=== PATIENT | male | born 1955 | race Two or more races ===

== ENCOUNTER 2020-04-22 06:50 | Outpatient (NON) | payer OTHER, SELFPAY ==
[2020-04-22 18:24] LABS: SARS-CoV-2 RNA PCR Negative
== END 2020-04-22 06:51 ==
LOC: ANHCOVIDDT 07:10
PROVIDERS: Visit Provider Internal Medicine
DX: R68.89 Other general symptoms and signs (principal); Z20.828 Contact with and (suspected) exposure to other viral communicable diseases
CPT/HCPCS: 87635; C9803; U0003

== ENCOUNTER 2020-04-27 10:00 | Outpatient (RCR) | payer OTHER, SELFPAY ==
--- NOTE | 2020-04-06 11:38 | PTOPEVAL ---
PHYSICAL THERAPY EVALUATION AND PLAN OF CARE Thank you for referring Diego Live to [facility].? The patient is scheduled to be seen for therapy? 1x/week for 3-6 weeks. We will reassess patient's condition at 3 weeks and determine if further skilled therapy is needed. Please review, sign, date and return this plan of care ASHLEY. I agree with and certify that the following plan of care is medically necessary. Referring Physician Date Attending Provider: Vladislav Moyer MD Evaluation Outpatient Past Medical History Cardiovascular History Hx Hypercholesterolemia Yes: controlled Hx Hypertension Yes: controlled Hx Myocardial Infarction Yes: mild [id number] ago Musculoskeletal History Hx Joint Replacement Yes: right WALKER Endocrine History Hx Diabetes Yes: controlled Evaluation Information Problem Diagnosis cervicalalgia Onset February 2020 Cause insidious Subjective Information Diego is here today with c/o Query Text:As Reported By Patient/ upper left sided neck pain. Family Pain with rotation, extension, flexion. 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 He does not sleep well with the pain. Takes Tramadol for pain. The pain is persisting too long for comfort. Self Report Pain Assessment Spine, Cervical Reported Pain Level 3 Pain Description Sharp,Spasms Lowest Pain Intensity 1 Greatest Pain Intensity 7 Pain Aggravating Factors Bending,Lifting Other Pain Aggravating Factors rotation Pain Behaviors None Cervical ROM Cervical Flexion (0-60) 55 Query Text:Active in Degrees Cervical Extension (0-70) 20 Query Text:Active in Degrees Cervical Rotation Right (0-90) 50 Query Text:Active in Degrees Cervical Rotation Left (0-90) 60 Query Text:Active in Degrees Cervical ROM Comments symptoms on left upper cervical spine with rotation and extension Scapular/ Shoulder Range of Motion Bilateral Reason Not Measured WFL/Left,WFL/Right Scapular/Shoulder Range of Motion no pain with shoulder ROM, Comments mild decrease in elevation Upper Extremity Muscle Strength Testing Scapular/Shoulder Bilateral Scapular Retraction - Middle Trapezius 3+ Fair + Scapular Retraction - Lower Trapezius 3- Fair - Shoulder Flexion Strength 5 Normal Should
--- NOTE | 2020-04-27 12:01 | PTOPEVAL ---
PHYSICAL THERAPY DISCHARGE NOTE Thank you for referring Diego Live to [facility].? Please review, sign, date and return this plan of care ASHLEY. I agree with and certify that the following plan of care is medically necessary. Referring physician: Attending Provider: Vladislav Moyer MD Discharge Diagnosis cervicalalgia Onset February 2020 Cause insidious Subjective Information Diego is here today with c/o Query Text:As Reported By Patient/ upper left sided neck pain. Family Reports that all pain is improving with some pain/ soreness at the end of the day . Sleeping is much improved. States that his weekend was very busy and he did well while at work, was just sore in the evening. Self Report Pain Assessment Spine, Cervical Reported Pain Level 1 Pain Description Sharp,Spasms Pain Aggravating Factors Bending,Lifting Other Pain Aggravating Factors rotation Pain Behaviors None Pain Score Pain Score 1: Self Report Interventions Used Interventions Used By Clinicians Exercise,Manual Therapy Techniques Pain Relief Interventions Used By Exercise Patient Cervical and Lumbar ROM Cervical ROM Cervical Flexion (0-60) 55 Query Text:Active in Degrees Cervical Extension (0-70) 55 Query Text:Active in Degrees Cervical Rotation Right (0-90) 65 Query Text:Active in Degrees Cervical Rotation Left (0-90) 70 Query Text:Active in Degrees Cervical ROM Comments symptoms on left upper cervical spine with rotation Upper Extremity Range of Motion Scapular/ Shoulder Range of Motion Bilateral Reason Not Measured WFL/Left,WFL/Right Upper Extremity Muscle Strength Testing Scapular/Shoulder Bilateral Scapular Retraction - Middle Trapezius 4 Good Scapular Retraction - Lower Trapezius 3 Fair Shoulder Flexion Strength 5 Normal Shoulder Abduction Strength 5 Normal Shoulder Medial Rotation Strength 5 Normal Shoulder Lateral Rotation Strength 5 Normal Muscle Length Testing Muscle Length Testing Scalenes Anterior Muscle Length (R) WFL,(L) Mild Tightness Query Text: Sternocleidomastoid Muscle Length (R) WFL,(L) Mild Tightness Palpation significantly improved tissue quality, mild trigger point in left upper trapezius PT Clinical Summary Dieog is a 64 yo male presenting to outpatient ph
== END 2020-04-28 11:11 | disposition home or self-care (01) ==
LOC: ANHPT 10:00
PROVIDERS: PCP Internal Medicine; Visit Provider Internal Medicine
DX: M54.2 Cervicalgia (principal)
CPT/HCPCS: 97110; 97140; 97161

== ENCOUNTER 2020-06-15 10:39 | Outpatient (CLI) | payer OTHER, SELFPAY ==
--- NOTE | ~2020-06-15 | XR_ITS ---
EXAMINATION: XR ankle LT 2V, XR foot LT 2V EXAM DATE: 06/15/2020 10:53 INDICATION: Pain in left foot, heel, ankle. TECHNIQUE: Frontal and lateral projections of the left ankle, foot. There are no prior studies for c omparison. FINDINGS: The ankle mortise appears intact. There are no acute left foot, ankle fractures or disloca tions identified. There is no subcutaneous gas. The soft tissue is unremarkable. There are no rad iopaque foreign bodies. There is mild 1st metatarsophalangeal joint primary osteoarthritis. 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 Reviewed, dictated and finalized at location B. 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
--- NOTE | ~2020-06-15 | XR_ITS ---
EXAMINATION: XR heel LT min 2V DATE: 06/15/2020 10:53 INDICATION: Left heel pain. TECHNIQUE: 2 views of left calcaneus were obtained. COMPARISON: None. FINDINGS: Bone alignment is normal. No fracture. Joint spaces are well maintained. There is an enthes ophyte at posterior aspect of calcaneal tuberosity. IMPRESSION: 1. No fracture. Reviewed, dictated and finalized at location A. D RECORDER IMPRESSION: 1. No fracture.
[2020-06-15 12:07] LABS: Basophils Percent Auto 0.5 % (0.2-1.2); Eosinophils Absolute Auto 0.2 K/mm3 (0-0.3); Eosinophils Percent Auto 3.9 % (0-4.4); Hematocrit 46.2 % (42.0-52.0); Hemoglobin 15.7 g/dL (14.0-18.0); Immature Granulocyte Absolute 0.05 K/mm3 (0.00-0.031); Immature Granulocyte Percent A 0.9 % (0-0.5); Immature Platelet Fraction Pct 8.5 % (0.9-11.2); Lymphocytes Absolute Auto 0.97 K/mm3 (0.9-3.2); Lymphocytes Percent Auto 17.3 % (18.3-44.2); Mean Corpuscular Hemoglobin 31.4 pg (26-34); Mean Corpuscular Volume 92.4 fl (80-100); Mean Platelet Volume 11.5 fl (7.4-10.4); Monocytes Absolute Auto 0.3 K/mm3 (0.1-0.6); Monocytes Percent Auto 5.9 % (2.6-8.5); Neutrophils Percent Auto 71.5 % (45.5-73.1); Platelet Count Result 132 k/mm3 (150-375); Red Cell Distribution Width 13.7 % (11.5-14.5); White Blood Count 5.6 K/mm3 (4.5-10.0)
[2020-06-15 12:14] LABS: Alanine Aminotransferase 70 U/L (4-50); Alkaline Phosphatase 110 U/L (38-126); Anion Gap 5 mmol/L (8-16); Aspartate Amino Transferase 48 U/L (17-59); Bilirubin,Total 0.7 mg/dL (0.2-1.3); Blood Urea Nitrogen 10 mg/dL (9-20); Calcium 8.8 mg/dL (8.4-10.2); Carbon Dioxide 34 mmol/L (22-30); Chloride 102 mmol/L (98-107); Cholesterol 118 mg/dL (0-200); Estimated Glomerular Filt Rate > 60; Glucose 138 mg/dL (75-110); HDL Direct 38 mg/dL; Potassium 4.1 mmol/L (3.4-5.0); Sodium 141 mmol/L (137-145); Triglycerides 147 mg/dL (<150)
[2020-06-15 12:25] LABS: LDL Cholesterol Direct 58 mg/dL
[2020-06-15 13:02] LABS: Hemoglobin A1C 6.7 % (<5.7)
[2020-06-18 11:43] LABS: GGT 43 U/L (3-70)
== END 2020-06-15 10:40 | disposition home or self-care (01) ==
PROVIDERS: PCP Internal Medicine; Visit Provider Internal Medicine
DX: M79.672 Pain in left foot (principal); E78.2 Mixed hyperlipidemia; Z51.81 Encounter for therapeutic drug level monitoring; Z79.899 Other long term (current) drug therapy; E11.9 Type 2 diabetes mellitus without complications; I10 Essential (primary) hypertension; M19.072 Primary osteoarthritis, left ankle and foot
CPT/HCPCS: 36415; 73600; 73620; 73650; 80048; 80061; 80076; 82977; 83036; 85025; 85055

== ENCOUNTER 2020-06-22 12:41 | Outpatient (CLI) | payer OTHER, SELFPAY ==
--- NOTE | ~2020-06-22 | XR_ITS ---
EXAMINATION: XR hip BI 2V w AP pelvis EXAM DATE: 06/22/2020 12:59 INDICATION: M25.559 - Pain in unspecified hip . TECHNIQUE: Each hip imaged independently (separate right and also left hip) 'frog leg' and frontal p rojections for interpretation. Frontal projection pelvis. Comparison is made to prior examination fr om 11/06/2014. FINDINGS: Total right hip arthroplasty. There is moderate left hip primary osteoarthritis. There is m ild bilateral sacroiliac primary osteoarthritis. There are no acute fractures or dislocations identi fied. There is no subcutaneous gas. The soft tissue is unremarkable. There are no radiopaque fore ign bodies. Macro arthritis. IMPRESSION: Moderate left hip osteoarthritis. Reviewed, dictated and finalized at location A. 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
[2020-06-22 13:32] LABS: CRP 0.7 mg/dL (<1.0)
[2020-06-22 13:44] LABS: Erythrocyte Sedimentation Rate 15 mm/hr (0-20)
== END 2020-06-22 12:42 | disposition home or self-care (01) ==
PROVIDERS: PCP Internal Medicine; Visit Provider Internal Medicine
DX: M16.12 Unilateral primary osteoarthritis, left hip (principal)
CPT/HCPCS: 36415; 73521; 85652; 86140

== ENCOUNTER 2020-07-14 11:00 | Outpatient (RCR) | payer OTHER, SELFPAY ==
--- NOTE | 2020-07-01 09:31 | PTOPEVAL ---
PHYSICAL THERAPY EVALUATION AND PLAN OF CARE Thank you for referring Diego Live to [facility].? The patient is scheduled to be seen for therapy? 1x/week for 3 weeks. Please review, sign, date and return this plan of care ASHLEY. I agree with and certify that the following plan of care is medically necessary. Referring Physician Date Attending Provider: Vladislav Moyer MD Evaluation Diagnosis left hip pain; OA Onset 6months Subjective Information Diego is here today with c/o Query Text:As Reported By Patient/ left hip pain. X-ray indicates Family moderate arthritis. 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 States that activities for extended periods of time are more difficult and painful in the left hip. Self Report Pain Assessment Left Hip(s) Reported Pain Level 2 Pain Description Aching,Sharp Pain Frequency Chronic,Intermittent Lowest Pain Intensity 0 Greatest Pain Intensity 6 Pain Aggravating Factors Walking,Weight Bearing/ Standing Pain Behaviors None Pain Score Pain Score 2: Self Report Interventions Used Interventions Used By Clinicians Exercise Pain Relief Interventions Used By Inactivity/Rest,Position Patient Change Lower Extremity Range of Motion Hip Range of Motion Left Hip Flexion Range of Motion - Passive 95 Hip Medial Rotation - Passive 14 Lower Extremity Muscle Strength Testing Hip Strength Left Hip Flexion Strength 4+ Good + Hip Extension Strength 3 Fair Hip Abduction Strength 4 Good Hip Strength Comments squat: performs at least 35% depth with good technique Knee Strength Bilateral Knee Flexion Strength 5 Normal Knee Extension Strength 5 Normal Ankle Strength Bilateral Ankle Strength Comments 16/20 unilateral heel raises on each side; stopped due to poor quality Muscle Length Testing Muscle Length Testing Piriformis w/Hip Flexion >90 Degrees (R) Mild Tightness,(L) Moderate Tightness Left Hamstring Length -50 Query Text:(90 - 90 Position) Right Hamstring Length -50 Query Text:(90 - 90 Position) Gait Assessment Gait Pattern Assessment Gait Pattern Wide Based Gait PT Clinical Summary Diego is a 64 yo male presenting to outpatient
--- NOTE | 2020-07-22 09:26 | PCPTNOTE ---
Patient did not show up for scheduled appointment this date.Called and left message regarding no show for his appt. Will plan to DC if pt does not call by Monday to reschedule.
--- NOTE | 2020-07-29 09:53 | PCPTNOTE ---
Admitting Provider: Attending Provider: Vladislav Moyer MD Patient:Diego Live Date of :1955 Discharge Note Patient has not returned for any further treatments since 07/14/2020, therefore he will be discharged at this time. Patient?s initial visit was on 07/01/2020 08:30 and he had a total of 3 visits with 1 no show.. The goals have been not met at this time. Thank you for referring this patient to [facility]. Please review, sign, date and return this discharge summary ASHLEY. I have been updated about the patient's current status and I agree with discharge from the above service at this time. Referring Physician Date
== END 2020-07-29 12:40 | disposition home or self-care (01) ==
LOC: ANHPT 11:00
PROVIDERS: Family Provider Internal Medicine; PCP Internal Medicine; Visit Provider Internal Medicine
DX: M16.12 Unilateral primary osteoarthritis, left hip (principal); M25.552 Pain in left hip
CPT/HCPCS: 97110; 97140; 97162

== ENCOUNTER 2020-10-26 10:58 | Outpatient (CLI) | payer OTHER, SELFPAY ==
[2020-10-26 11:36] LABS: Basophils Percent Auto 0.4 % (0.2-1.2); Eosinophils Absolute Auto 0.2 K/mm3 (0-0.3); Eosinophils Percent Auto 3.5 % (0-4.4); Hematocrit 42.3 % (42.0-52.0); Immature Granulocyte Absolute 0.03 K/mm3 (0.00-0.031); Immature Granulocyte Percent A 0.6 % (0-0.5); Lymphocytes Absolute Auto 0.89 K/mm3 (0.9-3.2); Lymphocytes Percent Auto 18.1 % (18.3-44.2); Mean Corpuscular HGB Conc 33.1 g/dl (32-36); Mean Corpuscular Hemoglobin 30.3 pg (26-34); Mean Corpuscular Volume 91.6 fl (80-100); Mean Platelet Volume 12.1 fl (7.4-10.4); Monocytes Absolute Auto 0.4 K/mm3 (0.1-0.6); Monocytes Percent Auto 7.1 % (2.6-8.5); Neutrophils Absolute Auto 3.5 K/mm3 (1.3-6.7); Neutrophils Percent Auto 70.3 % (45.5-73.1); Platelet Count Result 119 k/mm3 (150-375); Red Blood Count 4.62 M/mm3 (4.6-6.20); White Blood Count 4.9 K/mm3 (4.5-10.0)
[2020-10-26 11:46] LABS: Alanine Aminotransferase 34 U/L (4-50); Albumin Level 3.8 g/dL (3.5-5.1); Alkaline Phosphatase 104 U/L (38-126); Anion Gap 1 mmol/L (8-16); Aspartate Amino Transferase 33 U/L (17-59); Bilirubin,Total 0.4 mg/dL (0.2-1.3); Blood Urea Nitrogen 12 mg/dL (9-20); Calcium 8.6 mg/dL (8.4-10.2); Carbon Dioxide 31 mmol/L (22-30); Chloride 107 mmol/L (98-107); Cholesterol 109 mg/dL (0-200); Estimated Glomerular Filt Rate > 60; Glucose 129 mg/dL (75-110); HDL Direct 43 mg/dL; Sodium 139 mmol/L (137-145); Triglycerides 98 mg/dL (<150)
[2020-10-26 11:56] LABS: LDL Cholesterol Direct 50 mg/dL
[2020-10-26 12:35] LABS: Hemoglobin A1C 6.6 % (<5.7)
== END 2020-10-26 10:59 | disposition home or self-care (01) ==
LOC: ANHLAB 11:02
PROVIDERS: PCP Internal Medicine; Visit Provider Internal Medicine
DX: E78.2 Mixed hyperlipidemia (principal); I10 Essential (primary) hypertension; E11.9 Type 2 diabetes mellitus without complications
CPT/HCPCS: 36415; 80053; 80061; 83036; 85025

== ENCOUNTER 2021-03-08 14:18 | Outpatient (CLI) | payer OTHER, SELFPAY ==
[2021-03-08 15:16] LABS: Hemoglobin A1C 6.6 % (<5.7)
[2021-03-08 16:18] LABS: Free T4 Free Thyroxine 1.02 ng/mL (0.78-2.19)
[2021-03-08 19:01] LABS: Alanine Aminotransferase 45 U/L (4-50); Albumin Level 4.4 g/dL (3.5-5.1); Alkaline Phosphatase 111 U/L (38-126); Anion Gap 6 mmol/L (8-16); Aspartate Amino Transferase 36 U/L (17-59); Bilirubin,Total 0.5 mg/dL (0.2-1.3); Blood Urea Nitrogen 14 mg/dL (9-20); Calcium 9.5 mg/dL (8.4-10.2); Carbon Dioxide 32 mmol/L (22-30); Chloride 104 mmol/L (98-107); Cholesterol 119 mg/dL (0-200); Estimated Glomerular Filt Rate > 60; Glucose 105 mg/dL (65-110); HDL Direct 45 mg/dL; Potassium 4.5 mmol/L (3.4-5.0); Sodium 142 mmol/L (137-145); Triglycerides 87 mg/dL (<150)
[2021-03-08 19:12] LABS: LDL Cholesterol Direct 59 mg/dL
[2021-03-08 19:31] LABS: Prostate Specific Antigen 1.6 ng/mL (< OR = 4.0); Thyroid Stimulating Hormone 0.516 uIU/mL (0.465-4.680)
== END 2021-03-08 14:19 | disposition home or self-care (01) ==
LOC: ANHLAB 14:23
PROVIDERS: PCP Internal Medicine; Visit Provider Internal Medicine
DX: I10 Essential (primary) hypertension (principal); E11.9 Type 2 diabetes mellitus without complications; E78.2 Mixed hyperlipidemia; Z12.5 Encounter for screening for malignant neoplasm of prostate; Z79.899 Other long term (current) drug therapy
CPT/HCPCS: 36415; 80053; 80061; 83036; 84153; 84439; 84443; G0103

== ENCOUNTER 2021-05-03 15:43 | Outpatient (CLI) | payer OTHER, SELFPAY ==
--- NOTE | ~2021-05-03 | US_ITS ---
EXAMINATION: US venous doppler [facility] EXAM DATE: 05/03/2021 16:34 INDICATION: M79.605 - Pain and swelling in left leg . TECHNIQUE: Multiple grayscale, color flow and Doppler images of the left lower extremity deep venous system were obtained and reviewed. There is no prior study for comparison. FINDINGS: The left common femoral, femoral and profunda veins demonstrate normal color flow, respirat ory variation, augmentation and compressibility. Compressibility, color flow confirmed within the le ft popliteal, posterior tibial, peroneal, and greater saphenous veins. IMPRESSION: No left lower extremity deep venous thrombosis. Reviewed, dictated and finalized at location A. TAKER RESORT
== END 2021-05-03 15:44 | disposition home or self-care (01) ==
LOC: ANHIMG 15:49
PROVIDERS: PCP Internal Medicine; Visit Provider Internal Medicine
DX: M79.605 Pain in left leg (principal); M79.89 Other specified soft tissue disorders
CPT/HCPCS: 93971

== ENCOUNTER 2021-08-10 10:54 | Outpatient (CLI) | payer OTHER, SELFPAY ==
[2021-08-10 11:40] LABS: Add Urine Microscopic? YES; Appearance Urine Cloudy (Clear); Bilirubin Urine Negative (Negative); Blood Urine Negative (Negative); Color Urine Yellow (Yellow); Glucose Urine UA Negative (Negative); Ketones Urine Negative (Negative); Leukocyte Esterase Ur Negative LEU/UL (Negative); Mucus Urine Few /lpf; Nitrate Urine Negative (Negative); Protein Urine Negative (Negative); RBC Urine 0-2 /hpf (0-2); Specific Grav Ur 1.023 (1.001-1.035); Squamous Epithelial Cell Urine Rare /hpf (Few); Urobilinogen Urine Negative mg/dL (<2.0); WBC Urine 0-3 /hpf
[2021-08-10 11:44] LABS: Alanine Aminotransferase 26 U/L (4-50); Alkaline Phosphatase 105 U/L (38-126); Anion Gap 5 mmol/L (8-16); Aspartate Amino Transferase 25 U/L (17-59); Bilirubin,Total 0.6 mg/dL (0.2-1.3); Blood Urea Nitrogen 14 mg/dL (9-20); Calcium 8.5 mg/dL (8.4-10.2); Carbon Dioxide 30 mmol/L (22-30); Chloride 103 mmol/L (98-107); Cholesterol 145 mg/dL (0-200); Estimated Glomerular Filt Rate > 60; Glucose 189 mg/dL (65-110); HDL Direct 49 mg/dL; Potassium 3.6 mmol/L (3.4-5.0); Sodium 138 mmol/L (137-145); Triglycerides 99 mg/dL (<150)
[2021-08-10 11:55] LABS: LDL Cholesterol Direct 68 mg/dL
[2021-08-10 12:07] LABS: Creatinine Urine 280.1 mg/dL
[2021-08-10 12:09] LABS: Vitamin D 25 Hydroxy 51.3 ng/mL
[2021-08-10 12:11] LABS: MALB Creatinine Ratio 32.3 mg/g (0-30); Microalbumin Urine Random 90.5 mg/L (0-16.7)
== END 2021-08-10 10:55 | disposition home or self-care (01) ==
PROVIDERS: PCP Internal Medicine; Visit Provider Internal Medicine
DX: E55.9 Vitamin D deficiency, unspecified (principal); E78.2 Mixed hyperlipidemia; Z51.81 Encounter for therapeutic drug level monitoring; Z79.899 Other long term (current) drug therapy; E11.9 Type 2 diabetes mellitus without complications; I10 Essential (primary) hypertension
CPT/HCPCS: 36415; 80053; 80061; 81001; 82043; 82306

== ENCOUNTER 2021-08-23 14:45 | Outpatient (RCR) | payer OTHER, SELFPAY ==
--- NOTE | 2021-08-17 09:05 | PTOPEVAL ---
PHYSICAL THERAPY INITIAL EVALUATION. Thank you for referring Diego Live to [facility].? The patient is scheduled to be seen for therapy? 2x/week for 4 weeks. Please review, sign, date and return this plan of care ASHLEY. I agree with and certify that the following plan of care is medically necessary. Referring Physician Date Attending Provider: ANDREW Schwartz *PT Outpatient Evaluation Start: 08/17/21 Evaluation Information Diagnosis L knee pain osteoarthritis Onset ~2 years Subjective Information Pt states he is having knee Query Text:As Reported By Patient/ pain. 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 He has had a couple of injections without much relief. His last one was in Jun. Pt states he has increased pain during his prayer sessions, these last about 5 mins. Pt states he has a knee brace but reports he thinks he wears it too long as it causes his knee to swell. Pain Assessment Left Knee(s) Reported Pain Level 0 Pain Description Pinching,Sharp Lowest Pain Intensity 0 Greatest Pain Intensity 5 Pain Aggravating Factors Exercise/Activity,Walking, Weight Bearing/Standing Lower Extremity Range of Motion Left Knee Flexion Range of Motion - Active 124 Knee Flexion Range of Motion - Passive 133 Knee Extension Range of Motion - Active 0 Knee Extension Range of Motion - Passive 0 Knee Range of Motion Comments R knee active - 0-133 R knee passive 0-140 Lower Extremity Muscle Strength Testing Gross Lower Extremity Strength B LE grossly 4+/5 L knee flexion/ext 4/5 B hip abduction 4-/5 Functional strength: able to perform 7 mini squats to chair without UE support Muscle Length Testing Ivan Test Shortened Muscles Short (R) Iliopsoas,Short (R) Rectus Femoris Balance Assessment 5 Time Sit to Stand Time in Seconds 12 5 Time Sit to Stand Comments Without the use of UEs. Gait Assessment Other Gait Observations Decreased stance phase on the R, decreased stride length bilaterally. Stair Climbing Assessment Technique
--- NOTE | 2021-09-06 08:31 | PCPTNOTE ---
Patient called & cancelled scheduled remaining appointments on 09/03/21 due to taking a month long fast. Called Pt today and left voicemail asking if he would like to continue with therapy after his fast. Will follow up 10/03/21 if he has not rescheduled yet.
--- NOTE | 2021-10-04 14:44 | PCPTNOTE ---
LATE ENTRY FROM 09/27/21. Called pt and left voicemail inquiring if he would like to continue with therapy. Informed him to call within the next week or he will be discharged from therapy. Will wait 3 additional days and then discharge.
--- NOTE | 2021-10-11 13:15 | PCPTNOTE ---
Attending Provider: ANDREW Schwartz Patient:Diego Live Date of :1955 Patient has not returned for any further treatments since 08/23/2021, therefore he will be discharged at this time. Patient?s initial visit was on 08/17/2021 08:00 and he had a total of 3 visits. He has been called on at least 2 occasions regarding scheduling a follow up appointment. Thank you for referring this patient to [facility]. Please review, sign, date and return this discharge summary ASHLEY. I have been updated about the patient's current status and I agree with discharge from the above service at this time. Referring Physician Date
== END 2021-10-12 10:41 | disposition home or self-care (01) ==
LOC: ANHPT 14:45
PROVIDERS: PCP Internal Medicine; Visit Provider Nurse Practitioner Family
DX: M17.12 Unilateral primary osteoarthritis, left knee (principal)
CPT/HCPCS: 97110; 97112; 97161; 97530

== ENCOUNTER 2021-10-25 11:11 | Outpatient (CLI) | payer OTHER, SELFPAY ==
--- NOTE | ~2021-10-25 | XR_ITS ---
XR hip LT min 2V 10/25/2021 11:33 Indication: Left hip pain Procedure: 2 views left hip Comparison: 06/22/2020 Findings: Mild osteoarthritis of the left hip. No fracture, subluxation or dislocation. No significan t soft tissue abnormality. No foreign bodies. Impression: 1: Mild osteoarthritis of the left hip. Reviewed, dictated and finalized at location A. Impression: 1: Mild osteoarthritis of the left hip.
== END 2021-10-25 11:12 | disposition home or self-care (01) ==
PROVIDERS: PCP Internal Medicine; Visit Provider Internal Medicine
DX: M16.12 Unilateral primary osteoarthritis, left hip (principal); M25.552 Pain in left hip; M87.052 Idiopathic aseptic necrosis of left femur
CPT/HCPCS: 73502

== ENCOUNTER 2022-04-11 12:03 | Outpatient (CLI) | payer OTHER, SELFPAY ==
[2022-04-11 12:32] LABS: Hemoglobin A1C 6.7 % (<5.7)
[2022-04-11 12:37] LABS: Cholesterol 122 mg/dL (0-200); HDL Direct 46 mg/dL; Triglycerides 116 mg/dL (<150)
[2022-04-11 12:47] LABS: LDL Cholesterol Direct 56 mg/dL
[2022-04-11 13:01] LABS: Creatinine Urine 196.5 mg/dL
[2022-04-11 13:06] LABS: MALB Creatinine Ratio 20.3 mg/g (0-30); Microalbumin Urine Random 39.8 mg/L (0-16.7)
[2022-04-11 13:07] LABS: Prostate Specific Antigen 1.3 ng/mL (< OR = 4.0); Thyroid Stimulating Hormone 0.456 uIU/mL (0.465-4.680)
[2022-04-11 13:10] LABS: Free T4 Free Thyroxine 0.94 ng/mL (0.78-2.19); Vitamin D 25 Hydroxy 86.9 ng/mL
== END 2022-04-11 12:04 | disposition home or self-care (01) ==
LOC: ANHLAB 12:04
PROVIDERS: PCP Internal Medicine; Visit Provider Internal Medicine
DX: E55.9 Vitamin D deficiency, unspecified (principal); E78.2 Mixed hyperlipidemia; Z13.29 Encounter for screening for other suspected endocrine disorder; Z79.899 Other long term (current) drug therapy; E11.9 Type 2 diabetes mellitus without complications; Z12.5 Encounter for screening for malignant neoplasm of prostate
CPT/HCPCS: 36415; 80061; 82043; 82306; 83036; 84153; 84439; 84443; G0103

== ENCOUNTER 2022-10-03 12:32 | Outpatient (CLI) | payer OTHER, SELFPAY ==
[2022-10-03 13:28] LABS: Alanine Aminotransferase 25 U/L (6-50); Albumin Level 4.3 g/dL (3.5-5.1); Alkaline Phosphatase 119 U/L (38-126); Anion Gap 4 mmol/L (8-16); Aspartate Amino Transferase 26 U/L (17-59); Bilirubin,Total 0.7 mg/dL (0.2-1.3); Blood Urea Nitrogen 13 mg/dL (9-20); Calcium 8.9 mg/dL (8.4-10.2); Carbon Dioxide 35 mmol/L (22-30); Chloride 102 mmol/L (98-107); Cholesterol 104 mg/dL (0-200); Estimated Glomerular Filt Rate > 60; Glucose 131 mg/dL (65-110); HDL Direct 39 mg/dL; Sodium 141 mmol/L (137-145); Triglycerides 105 mg/dL (<150)
[2022-10-03 13:36] LABS: Basophils Percent Auto 0.5 % (0.2-1.2); Eosinophils Absolute Auto 0.2 K/mm3 (0-0.3); Eosinophils Percent Auto 4.2 % (0-4.4); Hematocrit 45.7 % (42.0-52.0); Hemoglobin 14.8 g/dL (14.0-18.0); Immature Granulocyte Absolute 0.07 K/mm3 (0.00-0.031); Immature Granulocyte Percent A 1.3 % (0-0.5); Lymphocytes Absolute Auto 0.87 K/mm3 (0.9-3.2); Lymphocytes Percent Auto 15.8 % (18.3-44.2); Mean Corpuscular HGB Conc 32.4 g/dl (32-36); Mean Corpuscular Hemoglobin 30.5 pg (26-34); Mean Corpuscular Volume 94.2 fl (80-100); Mean Platelet Volume 11.7 fl (7.4-10.4); Monocytes Absolute Auto 0.4 K/mm3 (0.1-0.6); Monocytes Percent Auto 6.4 % (2.6-8.5); Neutrophils Absolute Auto 3.9 K/mm3 (1.3-6.7); Neutrophils Percent Auto 71.8 % (45.5-73.1); Platelet Count Result 148 k/mm3 (150-375); Red Blood Count 4.85 M/mm3 (4.6-6.20); Red Cell Distribution Width 14.1 % (11.5-14.5); White Blood Count 5.5 K/mm3 (4.5-10.0)
[2022-10-03 13:39] LABS: LDL Cholesterol Direct 49 mg/dL
[2022-10-03 13:42] LABS: Hemoglobin A1C 6.8 % (<5.7)
[2022-10-03 13:57] LABS: Free T4 Free Thyroxine 1.02 ng/mL (0.78-2.19)
[2022-10-03 13:58] LABS: Thyroid Stimulating Hormone 0.525 uIU/mL (0.465-4.680)
== END 2022-10-03 12:33 | disposition home or self-care (01) ==
PROVIDERS: PCP Internal Medicine; Visit Provider Internal Medicine
DX: E78.2 Mixed hyperlipidemia (principal); I10 Essential (primary) hypertension; Z13.29 Encounter for screening for other suspected endocrine disorder; Z79.899 Other long term (current) drug therapy; E11.9 Type 2 diabetes mellitus without complications
CPT/HCPCS: 36415; 80053; 80061; 83036; 84439; 84443; 85025

== ENCOUNTER 2023-02-13 11:47 | Outpatient (CLI) | payer MEDICARE, SELFPAY ==
[2023-02-13 13:09] LABS: Basophils Absolute Auto 0.1 K/mm3 (0.0-0.1); Basophils Percent Auto 0.8 % (0.2-1.2); Eosinophils Absolute Auto 0.3 K/mm3 (0-0.3); Eosinophils Percent Auto 4.5 % (0-4.4); Hematocrit 49.4 % (42.0-52.0); Immature Granulocyte Absolute 0.08 K/mm3 (0.00-0.031); Immature Granulocyte Percent A 1.3 % (0-0.5); Immature Platelet Fraction Pct 9.4 % (0.9-11.2); Lymphocytes Absolute Auto 1.08 K/mm3 (0.9-3.2); Lymphocytes Percent Auto 17.3 % (18.3-44.2); Mean Corpuscular HGB Conc 32.4 g/dl (32-36); Mean Corpuscular Hemoglobin 30.4 pg (26-34); Mean Corpuscular Volume 93.7 fl (80-100); Mean Platelet Volume 11.9 fl (7.4-10.4); Monocytes Absolute Auto 0.4 K/mm3 (0.1-0.6); Monocytes Percent Auto 6.6 % (2.6-8.5); Neutrophils Absolute Auto 4.4 K/mm3 (1.3-6.7); Neutrophils Percent Auto 69.5 % (45.5-73.1); Platelet Count Result 137 k/mm3 (150-375); Red Blood Count 5.27 M/mm3 (4.6-6.20); Red Cell Distribution Width 14.2 % (11.5-14.5); White Blood Count 6.3 K/mm3 (4.5-10.0)
[2023-02-13 13:21] LABS: Alanine Aminotransferase 43 U/L (6-50); Albumin Level 4.5 g/dL (3.5-5.1); Alkaline Phosphatase 134 U/L (38-126); Anion Gap 7 mmol/L (8-16); Aspartate Amino Transferase 40 U/L (17-59); Bilirubin,Total 0.7 mg/dL (0.2-1.3); Blood Urea Nitrogen 12 mg/dL (9-20); Calcium 8.9 mg/dL (8.4-10.2); Carbon Dioxide 31 mmol/L (22-30); Chloride 100 mmol/L (98-107); Cholesterol 152 mg/dL (0-200); Estimated Glomerular Filt Rate > 60; Glucose 141 mg/dL (65-110); HDL Direct 48 mg/dL; Potassium 3.9 mmol/L (3.4-5.0); Sodium 138 mmol/L (137-145); Triglycerides 106 mg/dL (<150)
[2023-02-13 13:31] LABS: LDL Cholesterol Direct 80 mg/dL
[2023-02-13 13:50] LABS: Prostate Specific Antigen 1.4 ng/mL (< OR = 4.0)
== END 2023-02-13 11:48 | disposition home or self-care (01) ==
PROVIDERS: PCP Internal Medicine; Visit Provider Internal Medicine
DX: E11.9 Type 2 diabetes mellitus without complications (principal); I10 Essential (primary) hypertension; E78.5 Hyperlipidemia, unspecified; Z12.5 Encounter for screening for malignant neoplasm of prostate
CPT/HCPCS: 36415; 80053; 80061; 83036; 84153; 85025; 85055; G0103

== ENCOUNTER 2023-07-17 12:18 | Outpatient (CLI) | payer MEDICARE, SELFPAY ==
[2023-07-17 13:20] LABS: Alanine Aminotransferase 75 U/L (6-50); Albumin Level 4.1 g/dL (3.5-5.1); Alkaline Phosphatase 149 U/L (38-126); Anion Gap 5 mmol/L (8-16); Aspartate Amino Transferase 53 U/L (17-59); Bilirubin,Total 0.8 mg/dL (0.2-1.3); Blood Urea Nitrogen 15 mg/dL (9-20); Calcium 8.8 mg/dL (8.4-10.2); Carbon Dioxide 31 mmol/L (22-30); Chloride 102 mmol/L (98-107); Cholesterol 150 mg/dL (0-200); Estimated Glomerular Filt Rate > 60; Glucose 210 mg/dL (65-110); HDL Direct 40 mg/dL; Potassium 3.8 mmol/L (3.4-5.0); Sodium 138 mmol/L (137-145); Triglycerides 161 mg/dL (<150)
[2023-07-17 13:31] LABS: LDL Cholesterol Direct 83 mg/dL
== END 2023-07-17 12:19 | disposition home or self-care (01) ==
LOC: ANHLAB 12:21
PROVIDERS: PCP Internal Medicine; Visit Provider Internal Medicine
DX: E78.5 Hyperlipidemia, unspecified (principal); I10 Essential (primary) hypertension; E11.9 Type 2 diabetes mellitus without complications
CPT/HCPCS: 36415; 80053; 80061; 83036

== ENCOUNTER 2023-11-13 12:01 | Outpatient (CLI) | payer MEDICARE, SELFPAY ==
[2023-11-13 12:32] LABS: Basophils Percent Auto 0.5 % (0.2-1.2); Eosinophils Absolute Auto 0.2 K/mm3 (0-0.3); Eosinophils Percent Auto 3.7 % (0-4.4); Hemoglobin 14.6 g/dL (14.0-18.0); Immature Granulocyte Absolute 0.07 K/mm3 (0.00-0.031); Immature Granulocyte Percent A 1.2 % (0-0.5); Immature Platelet Fraction Pct 6.6 % (0.9-11.2); Lymphocytes Absolute Auto 1.17 K/mm3 (0.9-3.2); Lymphocytes Percent Auto 19.7 % (18.3-44.2); Mean Corpuscular HGB Conc 33.2 g/dl (32-36); Mean Corpuscular Hemoglobin 30.7 pg (26-34); Mean Corpuscular Volume 92.4 fl (80-100); Mean Platelet Volume 11.2 fl (7.4-10.4); Monocytes Absolute Auto 0.3 K/mm3 (0.1-0.6); Monocytes Percent Auto 5.4 % (2.6-8.5); Neutrophils Absolute Auto 4.1 K/mm3 (1.3-6.7); Neutrophils Percent Auto 69.5 % (45.5-73.1); Platelet Count Result 145 k/mm3 (150-375); Red Blood Count 4.76 M/mm3 (4.6-6.20); Red Cell Distribution Width 13.7 % (11.5-14.5)
[2023-11-13 12:44] LABS: Alanine Aminotransferase 27 U/L (6-50); Albumin Level 4.1 g/dL (3.5-5.1); Alkaline Phosphatase 116 U/L (38-126); Anion Gap 6 mmol/L (4-12); Aspartate Amino Transferase 27 U/L (17-59); Bilirubin,Total 0.8 mg/dL (0.2-1.3); Blood Urea Nitrogen 13 mg/dL (9-20); Calcium 9.1 mg/dL (8.4-10.2); Carbon Dioxide 31 mmol/L (22-30); Chloride 104 mmol/L (98-107); Cholesterol 135 mg/dL (0-200); Estimated Glomerular Filt Rate > 60; Glucose 171 mg/dL (65-110); HDL Direct 40 mg/dL; Potassium 3.9 mmol/L (3.4-5.0); Sodium 141 mmol/L (137-145); Triglycerides 162 mg/dL (<150)
[2023-11-13 12:47] LABS: Hemoglobin A1C 7.3 % (<5.7)
[2023-11-13 12:55] LABS: LDL Cholesterol Direct 81 mg/dL
[2023-11-13 13:06] LABS: Creatinine Urine 180.7 mg/dL
[2023-11-13 13:06] LABS: Free T4 Free Thyroxine 0.86 ng/mL (0.78-2.19); Vitamin D 25 Hydroxy 51.5 ng/mL
[2023-11-13 13:10] LABS: MALB Creatinine Ratio 29.7 mg/g (0-30); Microalbumin Urine Random 53.7 mg/L (0-16.7)
[2023-11-13 13:15] LABS: Thyroid Stimulating Hormone 0.346 uIU/mL (0.465-4.680)
== END 2023-11-13 12:02 | disposition home or self-care (01) ==
LOC: ANHLAB 12:03
PROVIDERS: PCP Internal Medicine; Visit Provider Internal Medicine
DX: I10 Essential (primary) hypertension (principal); E11.9 Type 2 diabetes mellitus without complications; E78.5 Hyperlipidemia, unspecified; Z13.29 Encounter for screening for other suspected endocrine disorder; Z79.899 Other long term (current) drug therapy; E55.9 Vitamin D deficiency, unspecified
CPT/HCPCS: 36415; 80053; 80061; 82043; 82306; 83036; 84439; 84443; 85025; 85055

== ENCOUNTER 2024-03-25 12:15 | Outpatient (CLI) | payer MEDICARE, SELFPAY ==
[2024-03-25 12:59] LABS: Basophils Percent Auto 0.8 % (0.2-1.2); Eosinophils Absolute Auto 0.2 K/mm3 (0-0.3); Eosinophils Percent Auto 3.8 % (0-4.4); Hemoglobin 15.8 g/dL (14.0-18.0); Immature Granulocyte Absolute 0.04 K/mm3 (0.00-0.031); Immature Granulocyte Percent A 0.8 % (0-0.5); Immature Platelet Fraction Pct 9.5 % (0.9-11.2); Lymphocytes Absolute Auto 1.02 K/mm3 (0.9-3.2); Lymphocytes Percent Auto 21.3 % (18.3-44.2); Mean Corpuscular HGB Conc 33.6 g/dl (32-36); Mean Corpuscular Hemoglobin 30.9 pg (26-34); Mean Corpuscular Volume 91.8 fl (80-100); Mean Platelet Volume 11.3 fl (7.4-10.4); Monocytes Absolute Auto 0.3 K/mm3 (0.1-0.6); Monocytes Percent Auto 5.9 % (2.6-8.5); Neutrophils Absolute Auto 3.2 K/mm3 (1.3-6.7); Neutrophils Percent Auto 67.4 % (45.5-73.1); Platelet Count Result 141 k/mm3 (150-375); Red Blood Count 5.12 M/mm3 (4.6-6.20); Red Cell Distribution Width 13.2 % (11.5-14.5); White Blood Count 4.8 K/mm3 (4.5-10.0)
[2024-03-25 13:20] LABS: Alanine Aminotransferase 52 U/L (6-50); Albumin Level 4.5 g/dL (3.5-5.1); Alkaline Phosphatase 139 U/L (38-126); Anion Gap 10 mmol/L (4-12); Aspartate Amino Transferase 36 U/L (17-59); Bilirubin,Total 0.7 mg/dL (0.2-1.3); Blood Urea Nitrogen 15 mg/dL (9-20); Calcium 9.4 mg/dL (8.4-10.2); Carbon Dioxide 30 mmol/L (22-30); Chloride 99 mmol/L (98-107); Cholesterol 152 mg/dL (0-200); Estimated Glomerular Filt Rate > 60; Glucose 220 mg/dL (65-110); HDL Direct 46 mg/dL; Potassium 4.3 mmol/L (3.4-5.0); Sodium 139 mmol/L (137-145); Triglycerides 167 mg/dL (<150); Uric Acid 4.4 mg/dL (3.5-8.5)
[2024-03-25 13:21] LABS: LDL Cholesterol Direct 74 mg/dL
[2024-03-25 13:38] LABS: Prostate Specific Antigen 1.1 ng/mL (< OR = 4.0); Thyroid Stimulating Hormone 0.668 uIU/mL (0.465-4.680)
[2024-03-25 13:53] LABS: Free T4 Free Thyroxine 0.87 ng/mL (0.78-2.19)
== END 2024-03-25 12:16 | disposition home or self-care (01) ==
LOC: ANHLAB 12:22
PROVIDERS: PCP Internal Medicine; Visit Provider Internal Medicine
DX: E11.9 Type 2 diabetes mellitus without complications (principal); M10.9 Gout, unspecified; Z79.899 Other long term (current) drug therapy; Z13.29 Encounter for screening for other suspected endocrine disorder; I10 Essential (primary) hypertension; E78.5 Hyperlipidemia, unspecified; Z12.5 Encounter for screening for malignant neoplasm of prostate
CPT/HCPCS: 36415; 80053; 80061; 83036; 84153; 84439; 84443; 84550; 85025; 85055; G0103

== ENCOUNTER 2024-05-13 01:11 | Day surgery (SDC) | payer MEDICARE, SELFPAY ==
[2024-05-07 10:48] VITALS: BMI 27.8
--- NOTE | 2024-05-07 11:20 | PC.NURSE ---
Spoke with PATIENT regarding medication PLAVIX. Pt. verbalizes understanding that the last dose is to be taken on 05/08/2024 and the Endoscopist will instruct them when to restart after the procedure.
[2024-05-13 12:33] VITALS: BP 178/106; PULSE 68; RESP 20; TEMP 35.9; O2SAT 100
--- NOTE | 2024-05-13 12:35 | WPDANESEPPF ---
Anes - Initial Pre Proc Eval Procedure: Operation Date: 05/13/24 13:00 Proposed Procedures p Screening Colonoscopy - Don Jhaveri MD Date/Time: 05/13/24 12:35 Surgeon: Don Jhaveri MD Pre Op Diagnosis: Neoplasm Screening Patient Data Age: 68 Gender: M Height: 1.82 m Weight: 92 kg Allergies Allergy/AdvReac Type Severity Reaction Status Date / Time aspirin Allergy Intermediate Hives Verified 05/13/24 12:27 ibuprofen Allergy Intermediate Hives Verified 05/13/24 12:27 naproxen Allergy Intermediate Headache Verified 05/13/24 12:27 tamsulosin AdvReac Mild Headache Verified 05/13/24 12:27 Home Medications Medication Instructions Recorded Confirmed Type antiarthritic combination no.2 900 900 mg PO DAILY 05/13/19 05/13/24 History mg tablet (glucosamine-chondroitin) multivitamin 1 tablet PO DAILY 05/13/19 05/13/24 History omega-3 fatty acids 1,000 mg 2,000 mg PO DAILY 06/20/19 05/13/24 History capsule (Fish Oil Concentrate) betamethasone dipropionate 0.05 % See Rx Instructions .Route 08/23/22 05/13/24 Rx topical cream .COMPLEX #60 grams turmeric 400 mg capsule 400 mg PO DAILY 10/03/22 05/13/24 History CBD gummies 1 tablet BYMOUTH 1XD #90 tabs 02/13/23 05/13/24 Rx trazodone 50 mg tablet See Rx Instructions .Route 11/16/23 05/13/24 Rx .COMPLEX #270 tabs allopurinol 300 mg tablet See Rx Instructions .Route 11/22/23 05/13/24 Rx .COMPLEX #90 tabs clopidogrel 75 mg tablet See Rx Instructions .Route 11/22/23 05/13/24 Rx .COMPLEX #90 tabs metformin 1,000 mg tablet 1,000 mg PO BID #60 tabs 01/15/24 05/13/24 Rx tramadol 50 mg tablet See Rx Instructions .Route 03/12/24 05/13/24 Rx .COMPLEX #60 tabs candesartan 32 mg tablet See Rx Instructions .Route 03/25/24 05/13/24 Rx .COMPLEX #90 tabs nebivolol 5 mg tablet (Bystolic) 5 mg PO DAILY #90 tabs 10/21/24 12/09/24 Rx rosuvastatin 20 mg tablet 20 mg PO DAILY #90 tabs 04/15/24 05/13/24 Rx shilajeet 1 dose BYMOUTH DAILY PRN IMMUNE 04/22/24 05/13/24 History BOOSTER xpkbtncuhv-obsgbshpceslb-tshsbujm 1 tablet PO Q4-6H PRN Migraine 05/07/24 05/13/24 History 50 mg-325 mg-40 mg tablet Headache nystatin-triamcinolone 100,000 1 applic topical BID PRN Rash 05/07/24 05/13/24 History unit/g-0.1 % topical cream Patient hx anesthesia problems: none Family hx anesthesia problems: none Results Review: All pre-operative results and documents have been reviewed as part of the pre-operative evaluation. [facility] Past Medical History Medical History Abdominal bloating Acute chest wall pain Acute pain of right knee Allergic reaction ASHD (arteriosclerotic heart disease) Benign essential hypertension BMI 28.0-28.9,adult BMI 29.0-29.9,adult BMI 30.0-30.9,adult Callus Cervicalgia Chronic headaches CKD (chronic kidney disease) Colon cancer screening Degenerative joint disease of left hip Dermatitis DM type 2 (diabetes mellitus, type 2) Eczema Effusion, left knee Encounter for Medicare annual wellness exam Encounter for preventive health examination Encounter for routine adult health examination with abnormal findings Encounter for routine adult health examination without abnormal findings Encounter for special screening examination for neoplasm of prostate Erectile dysfunction Gingivitis Gout Groin rash Heel pain Hip pain History of headache Hyperlipidemia Impacted cerumen of both ears Impacted cerumen of right ear Insomnia Knee pain, left Lateral epicondylitis of left elbow Left knee DJD Mass of right axilla Medial epicondylitis of knee Nocturia Nummular eczema On intermediate drug therapy Onychomycosis Otitis externa Pain and swelling of left lower extremity Pain of left heel Pressure in head Prostate cancer screening Right ear pain Right shoulder pain Skin lesion of hand Tenderness Thrombocytopenia URI (upper respiratory infection) Vision abnormalities Vitamin D deficiency Warts Surgical History Surgical History History of total right hip replacement Family History Family History Mother Hypertension Acute myocardial infarction Sibling Acute myocardial infarction Father Acute myocardial infarction Other Diabetes mellitus Social History Social History Smoking packs per day: 1 Smoking cigarettes per day: 20.0 Years smoked: 20 Smoking pack-years: 20.00 Smoking status: Former smoker Tobacco type: cigarettes Second hand tobacco smoke exposure: No Alcohol intake: current Substance use: never Substance use type: does not use Lack of Transportation: No Lack of Food: Never True Current Housing: I Have Housing Concerned About Future Housing: No Difficulty Paying Gas/Electric Bills: No Education: Master's Degree or Higher Living arrangements: with family Occupation/Education: occupation Gender identity (if verbalized by the patient): Male Spiritual care concerns: No Anes - Eval Final PreProcedure Day of Procedure 05/13/24 12:35 Patient weight: normal Heart: regular rate and rhythm Lungs: clear to auscultation Airway: Mallampati scale class II Neurological: alert and oriented Last oral intake: >/= 8 hours ASA classification: III Emergent: no Anesthetic plan: proceed Anesthesia type and monitoring: general GIVS and standard monitoring Results Review: All pre-operative results and documents have been reviewed as part of the pre-operative evaluation. Informed Consent: The patient's anesthetic plan and its attendant risks and benefits were discussed with the patient/family/POA. Questions were solicited and answers provided to the satisfaction of the patient/family/POA.
[2024-05-13] MEDS: LACTATED RINGERS 1,000 ML 150 ML IV CONT (12:49)
[2024-05-13 12:50] LABS: Glucose Point of Care 195 mg/dl (65-105)
--- NOTE | 2024-05-13 12:52 | P.HP_ITS ---
History of Present Illness History of Present Illness Consent: Risks, benefits, and alternatives have been discussed and questions answered. Patient agrees to proceed with procedure. Chief complaint: Neoplasm Screening Narrative: Diego Live is a 68 year old male here for screening colonoscopy, last one 10 years ago Review of Systems Review of Systems: All systems reviewed & are unremarkable except as noted in HPI and below PMFSH Past Medical History Medical History Abdominal bloating Acute chest wall pain Acute pain of right knee Allergic reaction ASHD (arteriosclerotic heart disease) Benign essential hypertension BMI 28.0-28.9,adult BMI 29.0-29.9,adult BMI 30.0-30.9,adult Callus Cervicalgia Chronic headaches CKD (chronic kidney disease) Colon cancer screening Degenerative joint disease of left hip Dermatitis DM type 2 (diabetes mellitus, type 2) Eczema Effusion, left knee Encounter for Medicare annual wellness exam Encounter for preventive health examination Encounter for routine adult health examination with abnormal findings Encounter for routine adult health examination without abnormal findings Encounter for special screening examination for neoplasm of prostate Erectile dysfunction Gingivitis Gout Groin rash Heel pain Hip pain History of headache Hyperlipidemia Impacted cerumen of both ears Impacted cerumen of right ear Insomnia Knee pain, left Lateral epicondylitis of left elbow Left knee DJD Mass of right axilla Medial epicondylitis of knee Nocturia Nummular eczema On penitentiary drug therapy Onychomycosis Otitis externa Pain and swelling of left lower extremity Pain of left heel Pressure in head Prostate cancer screening Right ear pain Right shoulder pain Skin lesion of hand Tenderness Thrombocytopenia URI (upper respiratory infection) Vision abnormalities Vitamin D deficiency Warts Surgical History Surgical History History of total right hip replacement Family History Family History Mother Hypertension Acute myocardial infarction Sibling Acute myocardial infarction Father Acute myocardial infarction Other Diabetes mellitus Social History Social History Smoking packs per day: 1 Smoking cigarettes per day: 20.0 Years smoked: 20 Smoking pack-years: 20.00 Smoking status: Former smoker Tobacco type: cigarettes Second hand tobacco smoke exposure: No Alcohol intake: current Substance use: never Substance use type: does not use Lack of Transportation: No Lack of Food: Never True Current Housing: I Have Housing Concerned About Future Housing: No Difficulty Paying Gas/Electric Bills: No Education: Master's Degree or Higher Living arrangements: with family Occupation/Education: occupation Gender identity (if verbalized by the patient): Male Spiritual care concerns: No Meds Home Medications and Allergies Home Medications Medication Instructions Recorded Confirmed Type antiarthritic combination no.2 900 900 mg PO DAILY 05/13/19 05/13/24 History mg tablet (glucosamine-chondroitin) multivitamin 1 tablet PO DAILY 05/13/19 05/13/24 History omega-3 fatty acids 1,000 mg 2,000 mg PO DAILY 06/20/19 05/13/24 History capsule (Fish Oil Concentrate) betamethasone dipropionate 0.05 % See Rx Instructions .Route 08/23/22 05/13/24 Rx topical cream .COMPLEX #60 grams turmeric 400 mg capsule 400 mg PO DAILY 10/03/22 05/13/24 History CBD gummies 1 tablet BYMOUTH 1XD #90 tabs 02/13/23 05/13/24 Rx trazodone 50 mg tablet See Rx Instructions .Route 11/16/23 05/13/24 Rx .COMPLEX #270 tabs allopurinol 300 mg tablet See Rx Instructions .Route 11/22/23 05/13/24 Rx .COMPLEX #90 tabs clopidogrel 75 mg tablet See Rx Instructions .Route 11/22/23 05/13/24 Rx .COMPLEX #90 tabs metformin 1,000 mg tablet 1,000 mg PO BID #60 tabs 01/15/24 05/13/24 Rx tramadol 50 mg tablet See Rx Instructions .Route 03/12/24 05/13/24 Rx .COMPLEX #60 tabs candesartan 32 mg tablet See Rx Instructions .Route 03/25/24 05/13/24 Rx .COMPLEX #90 tabs nebivolol 5 mg tablet (Bystolic) 5 mg PO DAILY #90 tabs 03/25/24 05/13/24 Rx rosuvastatin 20 mg tablet 20 mg PO DAILY #90 tabs 04/15/24 05/13/24 Rx shilajeet 1 dose BYMOUTH DAILY PRN IMMUNE 04/22/24 05/13/24 History BOOSTER gmozubzbmw-ilatlhilliacs-llbrtxst 1 tablet PO Q4-6H PRN Migraine 05/07/24 05/13/24 History 50 mg-325 mg-40 mg tablet Headache nystatin-triamcinolone 100,000 1 applic topical BID PRN Rash 05/07/24 05/13/24 History unit/g-0.1 % topical cream Allergies Allergy/AdvReac Type Severity Reaction Status Date / Time aspirin Allergy Intermediate Hives Verified 05/13/24 12:27 ibuprofen Allergy Intermediate Hives Verified 05/13/24 12:27 naproxen Allergy Intermediate Headache Verified 05/13/24 12:27 tamsulosin AdvReac Mild Headache Verified 05/13/24 12:27 Vital Signs Vital Signs - 24 hr 05/13/24 12:33 Temperature 96.7 F L Pulse Rate 68 Respiratory Rate 20 Blood Pressure 178/106 H Pulse Oximetry 100 Oxygen Delivery Room Air Exam Const: General: comfortable and no acute distress HENMT: Face/Nose/Sinus: Normal nares present Eyes: General: appearance normal, both eyes and all related structures Neck: Neck: no JVD Resp: Auscultation: clear to auscultation bilaterally Cardio: Rate: regular rate Rhythm: regular rhythm GI: Inspection: non-distended GI Palp: Yes Soft to palpation Skin: General skin exam: normal color Neuro: General: gait normal Speech: normal speech Extrem: General: normal to inspection Psych: Mental Status: mental status grossly normal Assessment and Plan Assessment and plan (1) Colon cancer screening: Code(s): Z12.11 - Encounter for screening for malignant neoplasm of colon Status: Acute Assessment and Plan: colonoscopy
[2024-05-13 13:10] VITALS: BP 136/80; PULSE 70; RESP 16; O2SAT 96
[2024-05-13 13:20] VITALS: BP 118/72; PULSE 71; RESP 16; O2SAT 95
[2024-05-13 13:30] VITALS: BP 140/94; PULSE 66; RESP 19; O2SAT 99
--- NOTE | 2024-05-13 14:15 | SUR.PHASEII ---
Duane verbal order for patient to restart Plavix tomorrow, 05/14
== END 2024-05-13 13:50 | disposition home or self-care (01) ==
PROVIDERS: PCP Internal Medicine; Visit Provider Internal Medicine Gastroenterology
PROC: 0DJD8ZZ Inspection of Lower Intestinal Tract, Via Natural or Artificial Opening Endoscopic (ICD-10-PCS; CPT 45378; principal; 2024-05-13 13:00)
DX: Z12.11 Encounter for screening for malignant neoplasm of colon (principal); D12.2 Benign neoplasm of ascending colon; E78.5 Hyperlipidemia, unspecified; E11.22 Type 2 diabetes mellitus with diabetic chronic kidney disease; I12.9 Hypertensive chronic kidney disease with stage 1 through stage 4 chronic kidney disease, or unspecified chronic kidney disease; N18.9 Chronic kidney disease, unspecified; I25.10 Atherosclerotic heart disease of native coronary artery without angina pectoris; N52.9 Male erectile dysfunction, unspecified; D69.6 Thrombocytopenia, unspecified; E55.9 Vitamin D deficiency, unspecified; G47.00 Insomnia, unspecified; M17.12 Unilateral primary osteoarthritis, left knee; M16.12 Unilateral primary osteoarthritis, left hip; R51.9 Headache, unspecified; Z79.02 Long term (current) use of antithrombotics/antiplatelets; Z79.84 Long term (current) use of oral hypoglycemic drugs; Z79.891 Long term (current) use of opiate analgesic; Z79.899 Other long term (current) drug therapy; Z98.890 Other specified postprocedural states; Z96.641 Presence of right artificial hip joint; Z87.891 Personal history of nicotine dependence; Z82.49 Family history of ischemic heart disease and other diseases of the circulatory system
CPT/HCPCS: 45385; 82948; 88305; J2003; J2704; J7120

== ENCOUNTER 2024-09-16 11:20 | Outpatient (CLI) | payer MEDICARE, SELFPAY ==
[2024-09-16 11:45] LABS: Basophils Percent Auto 0.8 % (0.2-1.2); Eosinophils Absolute Auto 0.2 K/mm3 (0-0.3); Eosinophils Percent Auto 4.5 % (0-4.4); Hematocrit 44.7 % (42.0-52.0); Hemoglobin 14.3 g/dL (14.0-18.0); Immature Granulocyte Absolute 0.03 K/mm3 (0.00-0.031); Immature Granulocyte Percent A 0.6 % (0-0.5); Immature Platelet Fraction Pct 8.8 % (0.9-11.2); Lymphocytes Absolute Auto 1.03 K/mm3 (0.9-3.2); Lymphocytes Percent Auto 20.9 % (18.3-44.2); Mean Corpuscular Hemoglobin 29.4 pg (26-34); Mean Platelet Volume 11.7 fl (7.4-10.4); Monocytes Absolute Auto 0.3 K/mm3 (0.1-0.6); Monocytes Percent Auto 6.9 % (2.6-8.5); Neutrophils Absolute Auto 3.3 K/mm3 (1.3-6.7); Neutrophils Percent Auto 66.3 % (45.5-73.1); Platelet Count Result 130 k/mm3 (150-375); Red Blood Count 4.86 M/mm3 (4.6-6.20); Red Cell Distribution Width 13.8 % (11.5-14.5); White Blood Count 4.9 K/mm3 (4.5-10.0)
[2024-09-16 11:55] LABS: Hemoglobin A1C 8.3 % (<5.7)
[2024-09-16 12:03] LABS: Alanine Aminotransferase 37 U/L (6-50); Albumin Level 4.2 g/dL (3.5-5.1); Alkaline Phosphatase 126 U/L (38-126); Anion Gap 7 mmol/L (4-12); Aspartate Amino Transferase 31 U/L (17-59); Bilirubin,Total 0.6 mg/dL (0.2-1.3); Blood Urea Nitrogen 16 mg/dL (9-20); Calcium 8.6 mg/dL (8.4-10.2); Carbon Dioxide 30 mmol/L (22-30); Chloride 103 mmol/L (98-107); Cholesterol 126 mg/dL (0-200); Estimated Glomerular Filt Rate > 60; Glucose 196 mg/dL (65-110); HDL Direct 42 mg/dL; Potassium 3.7 mmol/L (3.4-5.0); Sodium 140 mmol/L (137-145); Triglycerides 127 mg/dL (<150)
[2024-09-16 12:05] LABS: Creatinine Urine 147.2 mg/dL
[2024-09-16 12:09] LABS: MALB Creatinine Ratio 41.1 mg/g (0-30); Microalbumin Urine Random 60.5 mg/L (0-16.7)
[2024-09-16 12:13] LABS: LDL Cholesterol Direct 62 mg/dL
[2024-09-16 12:31] LABS: Thyroid Stimulating Hormone 0.923 uIU/mL (0.465-4.680)
--- OUTSIDE RECORDS SUMMARY | 2024-09-16 13:04 | XMS_ITS | Clinical Summary ---
Author Organization [facility] Address [address] [place] [address] Care Team Providers Care Valve Grinder Name Role Phone Vladislav Moyer MD Primary Care Provider [phone] Social History Tobacco Use Types Packs/Day Years Used Date Smoking Tobacco: Never Assessed Sex and Gender Information Value Date Recorded Sex Assigned at Not on file Legal Sex Male 6:44 PM CDT Gender Identity Not on file Sexual Orientation Not on file Plan of Treatment Health Maintenance Due Date Last Done Comments Colorectal Cancer Screening Colonoscopy (10 Years) 1957 Hepatitis C 11/13/1975 DTaP, Tdap and Td Vaccines (1 - Tdap) 1976 Zoster Vaccines (1 of 2) 11/13/2007 Annual Medicare Wellness Visit 2022 Pneumococcal Vaccine: 50+ Years (1 of 1 - PCV) 2022 COVID-19 Vaccine ( season) 2024 11/17/2021, 05/09/2021, 09/04/2020, Additional history exists RSV Immunization or 60+ Years (1 - 1-dose 75+ series) 2032 Meningococcal B Vaccine Aged Out No l onger eligible based on patient's age to complete this topic Meningococcal Vaccine Aged Out No yadi jacklyn eligible based on patient's age to complete this topic RSV Immunizations Under 20 Months Aged Out No longer eligible based on patient's age to complete this topic Insurance AETNA Care Teams Valve Grinder Relationship Specialty Start Date End Date Vladislav Moyer MD [address] - [facility] [address] [place] [address] PCP - General INTERNAL MEDICINE 05/16/24
--- OUTSIDE RECORDS SUMMARY | 2024-09-16 13:04 | XMS_ITS | Referral Summary ---
Author Organization [facility] [address] Address [address] [place] [address] Care Team Providers Care Supervisor Tank House Name Role Phone Vladislav Moyer MD Primary Care Provider Encounters Date Type Department Care Team Description 06/25/2024 Orders Only [facility] Cardiology [address] [place] [address] Provider, MD Taya from Last 3 Months Allergies Active Allergy Reactions Criticality Noted Date Comments Aspirin Hives Medium Esomeprazole Ibuprofen Hives Medium Medications rosuvastatin (CRESTOR) 40 mg tablet take 1/2 Tablet by oral route every day 0 0 07/16/2015 Active multivitamin tablet tablet take 1 by Oral route once 0 0 07/16/2015 Active fnlf-cpikv-ih6-d ya-kik-bbzg-st (GLUCOSAMINE CHONDROITIN PLUS) 510-967-28-54 mg capsule take 1 tablet by oral route daily 0 0 07/16/2015 Active valsartan (DIOVAN) 320 mg tablet take 1 tablet by oral route every day 0 0 07/16/2015 Active metoprolol XL (TOPROL-XL) 50 mg 24 hr tablet TAKE 1 TABLET BY MOUTH DAILY 30 tablet 5 03/01/2017 Active allopurinol (ZYLOPRIM) 300 mg tablet Take 1 tablet (300 mg total) by mouth daily 3 04/05/2018 Active metFORMIN XR (GLUCOPHAGE XR) 500 mg 24 hr tablet Take 1 tablet (500 mg total) by mouth daily Active clopidogrel (PLAVIX) 75 mg tabletIndication s:Coronary artery disease involving [place] coronary artery of [place] heart without angina pectoris Take 1 tablet (75 mg total) by mouth daily. 30 tablet 11 04/17/2018 Active traZODone (DESYREL) 50 mg tablet 04/16/2020 Active Active Problems Problem Noted Date Diagnosed Date Coronary artery disease invo lving [place] coronary artery of [place] heart without angina pectoris 04/18/2017 History of coronary artery stent placement 04/18 Surgical follow-up care 02/12/2013 Osteochondritis dissecans 05/18/2009 Social History Tobacco Use Types Packs/Day Years Used Date Smoking Tobacco: Former Cigarettes Smokeless Tobacco: Never Tobacco Cessation:Counseling Given: Not Answered Alcohol Use Standard Drinks/Week Comments No 0 (1 standard drink = 0.6 oz pur e alcohol) Personal Safety Answer Date Recorded Getting School Help Needed Not on file 07/23 Sex and Gender Information Value Date Recorded Sex Assigned at Not on file Legal Sex Male 8:24 PM POLICY VALUE CALCULATOR Gender Identity Not on file Sexual Orientation Not on file Last Filed Vital Signs Vital Sign Reading Time Taken Comments Blood Pressure 136/98 07/25/2023 10:07 AM POLICY VALUE CALCULATOR Pulse 65 07/25/2023 10:07 AM POLICY VALUE CALCULATOR Temperature - - Respiratory Rate - - Oxygen Saturation 99% 07/25/2023 10:07 AM POLICY VALUE CALCULATOR Inhaled Oxygen Concentration - - Weight 94.8 kg (209 lb) 07/25/2023 10:07 AM POLICY VALUE CALCULATOR Height 180.3 cm (5' 11 ) 07/25/2023 10:07 AM POLICY VALUE CALCULATOR Body Mass Index 29.15 07/25/2023 10:07 AM POLICY VALUE CALCULATOR Plan of Treatment Not on file Insurance [facility] [id number] AETNA MEDICARE Care Teams Supervisor Tank House Relationship Specialty Start Date End Date Vladislav Moyer MD [address] [facility] [address] [place] [address] PCP - General 07/16/15
--- OUTSIDE RECORDS SUMMARY | 2024-09-16 13:04 | XMS_ITS | Clinical Summary ---
Author Organization [facility] [address] Address [address] [place] [address] Care Team Providers Care Contracts Paralegal Name Role Phone Vladislav Moyer MD Primary Care Provider [phone] Allergies Active Allergy Reactions Criticality Noted Date Comments Aspirin Hives Medium Esomeprazole Ibuprofen Hives Medium Medications rosuvastatin (CRESTOR) 40 mg tablet take 1/2 Tablet by oral route every day 0 0 07/16/2015 Active multivitamin tablet tablet take 1 by Oral route once 0 0 07/16/2015 Active ltls-apvdf-nc8-d oo-are-tbtm-st (GLUCOSAMINE CHONDROITIN PLUS) 748-105-43-54 mg capsule take 1 tablet by oral [...] 75 mg tabletIndication s:Coronary artery disease involving [place] coronary artery of [place] heart without angina pectoris Take 1 tablet (75 mg total) by mouth daily. 30 tablet 11 04/17/2018 Active traZODone (DESYREL) 50 mg tablet 04/16/2020 Active Active Problems Problem Noted Date Diagnosed Date Coronary artery disease invo lving [place] coronary artery of [place] heart without angina pectoris 04/18/2017 History of coronary artery stent placement 04/18 Surgical follow-up care 02/12/2013 Osteochondritis dissecans 05/18/2009 Encounters Date Type Department Care Team Description 06/25/[address] [facility] Medical [facility] Cardiology [address] [place] [address] Provider, MD Taya from Last 3 Months Surgical History Surgery Date Site/Laterality Comments ANGIOPLASTY Medical History Medical History Date Comments Coronary artery disease Family History Medical History Relation Name Comments Heart failure Father Heart failure Mother Relation Name Status Comments Father (Age 72) Mother (Age 68) Social History Tobacco Use Types Packs/Day Years [...] on file Legal Sex Male 8:24 PM TEASELER Gender Identity Not on file Sexual Orientation Not on file Obstetrics History Last Filed Vital Signs Vital Sign Reading Time Taken Comments Blood Pressure 136/98 07/25/2023 10:07 AM TEASELER Pulse 65 07/25/2023 10:07 AM TEASELER Temperature - - Respiratory Rate - - Oxygen Saturation 99% 07/25/2023 10:07 AM TEASELER Inhaled Oxygen Concentration - - Weight 94.8 kg (209 lb) 07/25/2023 10:07 AM TEASELER Height 180.3 cm (5' 11 ) 07/25/2023 10:07 AM TEASELER Body Mass Index 29.15 07/25/2023 10:07 AM TEASELER Plan of Treatment Health Maintenance Due Date Last Done Comments Colon Cancer Screening-Colonoscopy 1957 Depression Screening 1957 Fall Risk Assessment 1957 Hepatitis C Screening 1957 Prostate Cancer Screening-PSA 1957 DTaP/Tdap/Td Vaccine (1 - Tdap) 1968 Hepatitis B Screening 11/13/1975 Pneumococcal vaccine 65+ (1 of 1 - PCV) 11/13/2007 Zoster Vaccine (1 of 2) 11/13/2007 Abdominal Aortic Aneurysm (AAA) Screen 2022 Well Visit 65+ 2022 Influenza Vaccine (Season Ended) 2025 07/21/19 14 [facility] [id number] AETNA MEDICARE Care Teams Contracts Paralegal Relationship Specialty Start Date End Date Vladislav Moyer MD [address] [facility] [place] [address] PCP - General 07/16/15
--- OUTSIDE RECORDS SUMMARY | 2024-09-16 13:04 | XMS_ITS | Clinical Summary ---
Author Organization [facility] Address [address] [facility] [place] [address] Care Team Providers Care Certified Nurses Aide Name Role Phone Vladislav Moyer MD Primary Care Provider [phone] Source Comments [facility],non-owned Affiliates and Associated Physician Practices is amultiple site organization consisting of ambulatory clinics and hospital sitesin [place], [place], [place] and [place]. This disclosure is being madepursuant to the Care Everywhere program and may not contain all information available regarding this patient. Last updated 18.[facility] Allergies Active Allergy Reactions Criticality Noted Date Comments Aspirin Urticaria Medium Esomeprazole Itching Ibuprofen Urticaria Medium Medications * Be aware that medications may not be up to date on this document. Alwaysverify current medications with the patient. allopurinol (ZYLOPRIM) 300 MG tablet Take 300 mg by mouth once daily Active rosuvastatin (CRESTOR) 10 MG tablet Take 10 mg by mouth once daily Active metFORMIN ER 24hr (GLUCOPHAGE XR) 500MG tablet Take 500 mg by mouth daily with dinner Active metoprolol succinate XL 24hr (TOPROL XL) 50 MG tablet Take 50 mg by mouth once daily Active clopidogrel (PLAVIX) 75 MG tablet Take 75 mg by mouth once daily Active valsartan (DIOVAN) 320 MG tablet Take 320 mg by mouth once daily Active albuterol HFA (VENTOLIN HFA) 108 (90 BASE) MCG/ACT inhaler Inhale 2 puffs by mouth every 4 hours as needed for Wheezing or Cough 1 Inhaler 09/21/2017 Active fluticasone propionate (FLONASE) 50 MCG/ACT nasal spray [place] 2 sprays into each nostril once daily 1 bottles 09/21/2017 Active Active Problems No known active problems Social History Tobacco Use Types Packs/Day Years Used Date Smoking Tobacco: Former Smokeless Tobacco: Never Sex and Gender Information Value Date Recorded Sex Assigned at Not on file Legal Sex Male 4:10 PM CDT Gender Identity Not on file Sexual Orientation Not on file Last Filed Vital Signs Vital Sign Reading Time Taken Comments Blood Pressure 138/82 11/06/2017 4:41 PM CDT Pulse 61 11/06/2017 4:41 PM CDT Temperature 36.6 C (97.8 F) 11/06/2017 4:41 PM CDT Respiratory Rate 18 11/06/2017 4:41 PM CDT Oxygen Saturation 97% 11/06/2017 4:41 PM CDT Inhaled Oxygen Concentration - - Weight 84.4 kg (186 lb) 11/06/2017 4:41 PM CDT Height 181.6 cm (5' 11.5 ) 11/06/2017 4:41 PM CD T Body Mass Index 25.58 11/06/2017 4:41 PM CDT Plan of Treatment Health Maintenance Due Date Last Done Comments COLOGUARD (AGES 45-75) - COL ON CA SCREENING 1957 COLON MONITORING 1957 COLONOSCOPY - COLON CA SCREENING 1957 CT COLONOGRAPHY - COLON CA SCREENING 1957 Colorectal Cancer Screening 1957 FIT - COLON CA SCREENING 1957 FLEX SIG - COLON CA SCREENING 1957 HEPATITIS C SCREENING 11/08/1975 DTAP/TDAP/TD VACCINES (1 - Tdap) 1976 PNEUMOCOCCAL VACCINE 50+ (1 of 1 - PCV) 11/13/2007 ZOSTER VACCINE (1 of 2) 11/13/2007 SCREENING FOR DIABETES 09/21/2017 AAA SCREENING 2022 COVID-19 VACCINE (1 - 2023-2 5 season) 2024 DEPRESSION SCREENING 06/05/2024 MEDICARE AWV CALENDAR YEAR 2024 INFLUENZA VACCINE (Season Ended) 2025 Respiratory Syncytial Virus (RSV) Vaccine Pt: or over 60 yrs (1 - 1-dose 75+ series) 2032 HEPATITIS B VACCINE Aged Out No longe r eligible based on patient's age to complete this topic HIB VACCINE Aged Out No longer eligi ble based on patient's age to complete this topic HPV VACCINE Aged Out No longer eligi ble based on patient's age to complete this topic MENINGOCOCCAL (Group B) VACC INE SHARED DECISION-MAKING Aged Out No longer eligibl e based on patient's age to complete this topic MENINGOCOCCAL GROUPS A/C/Y/W VACCINE Aged Out No longer eligible b ased on patient's age to complete this topic Insurance [employer] AETNA MEDICARE ADV SELF PAY NO INSURANCE Member Subscriber Plan / Payer (Ef fective for All Dates) Name:Diego Brito Member ID:Not on file Relation to Subscriber:Not on file Name:DIEGO BRITO Subscriber ID:Not on file (Home) Address: [address] [place] [address] Payer ID:Not on file Group ID:Not on file Type:Self Pay Address: [place], [place] Care Teams Certified Nurses Aide Relationship Specialty Start Date End Date Vladislav Moyer MD [address] [place] [phone] PCP - General Internal Medicine 09/21/17
== END 2024-09-16 11:21 | disposition home or self-care (01) ==
LOC: ANHLAB 11:21
PROVIDERS: PCP Internal Medicine; Visit Provider Internal Medicine
DX: E78.2 Mixed hyperlipidemia (principal); I10 Essential (primary) hypertension; E11.9 Type 2 diabetes mellitus without complications; Z79.899 Other long term (current) drug therapy; Z13.29 Encounter for screening for other suspected endocrine disorder
CPT/HCPCS: 36415; 80053; 80061; 82043; 83036; 84439; 84443; 85025; 85055

== ENCOUNTER 2025-01-27 11:13 | Outpatient (CLI) | payer MEDICARE, SELFPAY ==
--- OUTSIDE RECORDS SUMMARY | 2025-01-27 11:55 | XMS_ITS | Clinical Summary ---
Author Organization [facility] Address [address] [place] [address] Care Team Providers Care Industrial Manufacturing Technician Name Role Phone Vladislav Moyer MD Primary Care Provider [phone] Social History Tobacco Use Types Packs/Day Years [...] and Td Vaccines (1 - Tdap) 1976 Pneumococcal Vaccine: 50+ Years (1 of 1 - PCV) 11/13/2007 Zoster Vaccines (1 of 2) 11/13/2007 Annual Medicare Wellness Visit 2022 COVID-19 Vaccine ( season) 2024 11/17/2021, [...] complete this topic Insurance AETNA Care Teams Industrial Manufacturing Technician Relationship Specialty Start Date End Date Vladislav Moyer MD [address] - [facility] [address] [place] [address] PCP - General INTERNAL MEDICINE 05/16/24
--- OUTSIDE RECORDS SUMMARY | 2025-01-27 11:55 | XMS_ITS | Clinical Summary ---
Author Organization [facility] [address] Address [address] [place] [address] Care Team Providers Care Maintenance Machine Repairer Name Role Phone Vladislav Moyer MD Primary Care Provider [phone] Allergies Active Allergy Reactions Criticality Noted Date Comments Aspirin Hives Medium Esomeprazole Ibuprofen Hives Medium Medications rosuvastatin (CRESTOR) 40 mg tablet take 1/2 Tablet by oral route every day 0 0 07/16/2015 Active multivitamin tablet tablet take 1 by Oral route once 0 0 07/16/2015 Active leqa-lomij-tx3-d gj-ntq-oezj-st (GLUCOSAMINE CHONDROITIN PLUS) 869-821-07-54 mg capsule take 1 tablet by oral route daily 0 0 07/16/2015 Active valsartan (DIOVAN) 320 mg tablet take 1 tablet by oral route every day 0 0 07/16/2015 Active allopurinol (ZYLOPRIM) 300 mg tablet Take 1 tablet (300 mg total) by mouth daily 3 04/05/2018 Active metFORMIN XR (GLUCOPHAGE XR) 500 mg 24 hr tablet Take 1 tablet (500 mg total) by mouth daily Active clopidogrel (PLAVIX) 75 mg tabletIndication s:Coronary artery disease involving [place] coronary artery of [place] heart without angina pectoris Take 1 tablet (75 mg total) by mouth daily. 30 tablet 11 04/17/2018 Active traZODone (DESYREL) 50 mg tablet 04/16/2020 Active nebivoloL (BYSTOLIC) 5 mg tablet Take 1 tablet (5 mg total) by mouth daily 09/16/2024 Active Active Problems Problem Noted Date Diagnosed Date Coronary artery disease invo lving [place] coronary artery of [place] heart without angina pectoris 04/18/2017 History of coronary artery stent placement 04/18 Surgical follow-up care 02/12/2013 Osteochondritis dissecans 05/18/2009 Surgical History Surgery Date Site/Laterality Comments ANGIOPLASTY [...] drink = 0.6 oz pur e alcohol) Sex and Gender Information Value Date Recorded Sex Assigned at Not on file Legal Sex Male 8:24 PM OFFICE SERVICE COORDINATOR Gender Identity Not on file Sexual Orientation Not on file Obstetrics History Last Filed Vital Signs Vital Sign Reading Time Taken Comments Blood Pressure 122/84 10/25/2024 9:52 AM CDT Pulse 57 10/25/2024 9:52 AM CDT Temperature - - Respiratory Rate - - Oxygen Saturation 98% 10/25/2024 9:52 AM CDT Inhaled Oxygen Concentration - - Weight 91.6 kg (202 lb) 10/25/2024 9:52 AM CDT Height 180.3 cm (5' 11) 10/25/2024 9:52 AM CDT Body Mass Index 28.17 10/25/2024 9:52 AM CDT Plan of Treatment Health Maintenance Due [...] 2022 Well Visit 65+ 2022 Influenza Vaccine (#1) 2025 07/21/2013 Insurance [facility] [id number] AETNA MEDICARE Care Teams Maintenance Machine Repairer Relationship Specialty Start Date End Date Vladislav Moyer MD [address] [facility] [address] [place] [address] PCP - General 07/16/15
--- OUTSIDE RECORDS SUMMARY | 2025-01-27 11:55 | XMS_ITS | Clinical Summary ---
Author Organization [facility] Address [address] [facility] [place] [address] Care Team Providers Care Transit Operator Name Role Phone Vladislav Moyer MD Primary Care Provider [phone] Source Comments [facility],non-owned Affiliates and Associated Physician Practices is amultiple site organization consisting of ambulatory clinics and hospital sitesin [place], [place], [place] and [place]. This disclosure is being madepursuant to the Care Everywhere program and may not contain all information available regarding this patient. Last updated 18.[facility] Allergies Active Allergy Reactions Criticality Noted Date [...] fluticasone propionate (FLONASE) 50 MCG/ACT nasal spray [place] 2 sprays into each nostril once daily [...] 4:41 PM CDT Height 181.6 cm (5' 11.5) 11/06/2017 4:41 PM CD T Body Mass [...] MEDICARE AWV CALENDAR YEAR 2024 INFLUENZA VACCINE (#1) 2025 Respiratory Syncytial Virus (RSV) Vaccine Pt: [...] file (Home) Address: [address] [place] [address] Payer ID:Not on file Group ID:Not on file Type:Self Pay Address: [place], [place] Care Teams Transit Operator Relationship Specialty Start Date End Date Vladislav Moyer MD [address] [place] [phone] PCP - General Internal Medicine 09/21/17
[2025-01-27 12:08] LABS: Alanine Aminotransferase 45 U/L (6-50); Albumin Level 4.2 g/dL (3.5-5.1); Alkaline Phosphatase 129 U/L (38-126); Anion Gap 8 mmol/L (4-12); Aspartate Amino Transferase 39 U/L (17-59); Bilirubin,Total 0.6 mg/dL (0.2-1.3); Blood Urea Nitrogen 13 mg/dL (9-20); Calcium 8.9 mg/dL (8.4-10.2); Carbon Dioxide 29 mmol/L (22-30); Chloride 102 mmol/L (98-107); Cholesterol 132 mg/dL (0-200); Estimated Glomerular Filt Rate > 60; Glucose 199 mg/dL (65-110); HDL Direct 41 mg/dL; Potassium 3.6 mmol/L (3.4-5.0); Sodium 139 mmol/L (137-145); Total Protein 7.0 g/dL (6.3-8.2); Triglycerides 103 mg/dL (<150)
[2025-01-27 12:16] LABS: Free T4 Free Thyroxine 0.91 ng/dL (0.78-2.19)
[2025-01-27 12:45] LABS: Hemoglobin A1C 7.4 % (<5.7)
[2025-01-27 12:47] LABS: Thyroid Stimulating Hormone 1.140 uIU/mL (0.465-4.680)
== END 2025-01-27 11:14 | disposition home or self-care (01) ==
PROVIDERS: PCP Internal Medicine; Visit Provider Internal Medicine
DX: E78.2 Mixed hyperlipidemia (principal); R53.83 Other fatigue; I10 Essential (primary) hypertension; E11.9 Type 2 diabetes mellitus without complications
CPT/HCPCS: 36415; 80053; 80061; 83036; 84439; 84443